=== PATIENT | male | born 1955 | race Caucasian/White ===

== ENCOUNTER → 2018-04-30 | Outpatient (CLI) | payer MEDICARE ==
--- NOTE | 2018-04-30 13:17 | CT ---
EXAMINATION TYPE: CT chest abdomen wo con DATE OF EXAM: 04/30/2018 COMPARISON: None HISTORY: Cough, vomiting, generalized abdominal pain and chest pain. CT DLP: 1069 mGycm Automated exposure control for dose reduction was used. FINDINGS: Lack of intravenous and oral contrast limit evaluation of both the hollow and solid viscera . THORAX: There is a 2 mm pulmonary nodule within the left upper lobe on series 4 image 18 there is als o a 3 mm pulmonary nodule along the interlobar fissure on series 4 image 15 in the left. Few scattere d areas of subsegmental atelectasis are present within the lungs. Moderate coronary artery calcifications are noted. No cardiomegaly or pericardial effusion. No 1 cm s hort axis lymph node within the mediastinum. There is a conventional three-vessel branch pattern of t he aortic arch. Mild multilevel degenerative changes of the spine are present. There is a subacute appearing nondispl aced fractures of the lateral 6th through 10th ribs on the right. Multilevel degenerative change of t he spine is moderate. There is extensive degenerative disc disease and Schmorl's node formation with a limbus vertebrae of L5 and a compression deformity of T12 is age-indeterminate with vertebral body height loss of approximately 60%. ABDOMEN: The liver is diffusely hypoattenuated approaching criteria for hepatic steatosis although this does n ot currently meet criteria for hepatic steatosis. The unenhanced adrenal glands, pancreas, gallbladde r, and spleen are of unremarkable morphology. The kidneys are overall symmetric in morphology without nephrolithiasis or hydronephrosis. The bowel is nondilated. There is a small fat filled umbilical he rnia with diastases recti. No greater than 1 cm short axis lymph nodes are seen within the abdomen. A bdominal aorta appears to be of normal course and caliber with mild/moderate calcific atheromatous pl aquing. IMPRESSION: 1. SUBACUTE APPEARING NONDISPLACED LATERAL RIGHT RIB FRACTURE DEFORMITIES OF RIBS 6 THROUGH 10. 2. AGE-INDETERMINATE COMPRESSION DEFORMITY OF T12 WITH VERTEBRAL BODY HEIGHT LOSS OF APPROXIMATELY 60 %. CORRELATE WITH POINT TENDERNESS TO DETERMINE THE NEED FOR MRI TO EVALUATE FOR BONE MARROW EDEMA. 3. NO ACUTE INTRA-ABDOMINAL PATHOLOGY. LOW-ATTENUATION OF THE LIVER APPROACHES CRITERIA FOR HEPATIC S TEATOSIS AND THERE IS A SMALL FAT FILLED UMBILICAL HERNIA.
== END | disposition home or self-care (01) ==
LOC: RADCTMAIN 12:09
PROVIDERS: ATTEND Family Medicine
DX: S22.41XA Multiple fractures of ribs, right side, initial encounter for closed fracture (principal); M43.8X4 Other specified deforming dorsopathies, thoracic region; K42.9 Umbilical hernia without obstruction or gangrene; R93.2 Abnormal findings on diagnostic imaging of liver and biliary tract
CPT/HCPCS: 71250; 74150